=== PATIENT | female | born 1940 | race Caucasian/White ===

== ENCOUNTER 2020-10-30 14:35 | Emergency (ER) | payer MEDICARE, OTHER ==
[2020-10-30] MEDS ORDERED: ATROPINE 0.4 MG/ML VIAL IVP ONE (14:51)
[2020-10-30] MEDS ORDERED: GLUCAGON 5 MG in DEXTROSE 5% 45 ML IV STA (14:51)
[2020-10-30] MEDS ORDERED: SODIUM CHLORIDE 0.9% 1,000 ML IV STA ×2 (14:52→15:45)
--- NOTE | 2020-10-30 14:54 | ED Physician Documentation ---
History of Present Illness - Stated complaint Stated Complaint: "LOW PULSE" - Chief complaint Chief Complaint: Cardiac - History obtained from History obtained from: Patient - History of Present Illness Timing: Today Pain level max: 0 Pain level now: 0 - Additonal information Additional information: 79-year-old female who presents to the emergency department feeling lightheaded and dizzy today. Upon arrival to triage her heart rate is between 20 and 30. She does not know what medication she takes. She states that she is on medication for high blood pressure, atrial fibrillation, memory issues. She lives in [place] and is here visiting. Review of Systems Ten Systems: 10 systems reviewed and negative Constitutional: denies: Fever, Chills Nose: denies: Rhinorrhea / runny nose, Congestion Throat: denies: Sore throat Cardiac: denies: Chest pain / pressure Respiratory: denies: Cough GI: reports: Nausea. denies: Abdominal Pain, Vomiting, Diarrhea Skin: denies: Rash Musculoskeletal: denies: Neck pain, Back pain Neurologic: denies: Headache PD PAST MEDICAL HISTORY - Past Medical History Past Medical History: Yes Cardiovascular: Hypertension, Atrial fibrillation Neuro: Dementia - Present Medications Home Medications: Ambulatory Orders Medication Instructions Recorded Confirmed Albuterol Sulfate [Proair Hfa 1 - 2 puffs INH Q4H PRN 10/30/20 10/30/20 Inhaler] Donepezil HCl [Aricept] 10 mg PO DAILY 10/30/20 10/30/20 Estrogens, Conjugated Cream 30 gm VG ONCE 10/30/20 10/30/20 [Premarin Cream] Famotidine [Pepcid] 20 mg PO DAILY 10/30/20 10/30/20 Fluoxetine HCl [Prozac] 40 mg PO DAILY 10/30/20 10/30/20 Memantine HCl [Namenda] 10 mg PO BID 10/30/20 10/30/20 Metoprolol Succinate [Toprol Xl] 100 mg PO DAILY 10/30/20 10/30/20 Rivaroxaban [Xarelto] 20 mg PO DAILY 10/30/20 10/30/20 Spironolactone [Aldactone] 25 mg PO DAILY 10/30/20 10/30/20 Umeclidinium Brm/Vilanterol Tr 1 each IH DAILY 10/30/20 10/30/20 [Anoro Ellipta 62.5-25 Mcg INH] - Allergies Allergies/Adverse Reactions: Allergies Allergy/AdvReac Type Severity Reaction Status Date / Time latex Allergy Rash Verified 10/30/20 14:40 Penicillins Allergy Rash Verified 10/30/20 14:40 - Living Situation Living Situation: reports: With family Living Arrangement: reports: At home - Social History Does the pt have substance abuse?: No - Family History Family history: reports: Non contributory PD ED PE NORMAL - Vitals Vital signs reviewed: Yes - General General: Alert and oriented X 3, Well developed/nourished, Other (Pale appearing) - HEENT HEENT: Moist mucous membranes - Neck Neck: Supple, no meningeal sign - Cardiac Cardiac: Strong equal pulses, Other (bradycardia) - Respiratory Respiratory: No respiratory distress, Clear bilaterally - Abdomen Abdomen: Soft, Non tender, Non distended - Derm Derm: Warm and dry - Extremities Extremities: No edema - Neuro Neuro: Alert and oriented X 3 - Psych Psych: Normal mood, Normal affect Results - Vitals Vitals: Vital Signs - 24 hr 10/30/20 10/30/20 10/30/20 14:40 15:06 15:30 Temperature 36.3 C L Heart Rate 31 L 38 L 39 L Respiratory 14 16 14 Rate Blood Pressure 128/62 128/62 O2 Saturation 94 89 L 94 10/30/20 10/30/20 10/30/20 16:00 16:35 17:04 Temperature Heart Rate 58 L 58 L 48 L Respiratory 14 11 L 12 Rate Blood Pressure 137/81 H 130/81 H 146/71 H O2 Saturation 94 94 95 Oxygen O2 Source Room air - EKG (time done) 1443 Rate: Rate (enter#) (28) Rhythm: Other (junctional rhythm) Lane: Normal Intervals: Normal MA QRS: Normal Ischemia: Normal ST segments 1631 Rate: Rate (enter#) (57) Rhythm: NSR Lane: Normal Intervals: Prolonged MA QRS: Normal Ischemia: Normal ST segments - Labs Labs: Laboratory Tests 10/30/20 10/30/20 10/30/20 14:45 14:45 14:45 WBC 7.6 RBC 4.52 Hgb 11.7 L Hct 39.0 MCV 86.3 MCH 25.9 L MCHC 30.0 L RDW 16.3 H Plt Count 280 MPV 10.7 Neut # (Auto) 5.7 Lymph # (Auto) 1.0 L [place] # (Auto) 0.7 Eos # (Auto) 0.1 Baso # (Auto) 0.0 Absolute Nucleated RBC 0.00 Nucleated RBC % 0.0 PT 26.2 H INR 2.5 H APTT 40.7 H Sodium 132 L Potassium 4.7 Chloride 92 L Carbon Dioxide 29 Anion Gap 11.0 BUN 27 H Creatinine 2.3 H Estimated GFR (MDRD) 21 L Glucose 153 H POC Whole Bld Glucose Calcium 9.4 Total Bilirubin 0.7 AST 36 ALT 25 Alkaline Phosphatase 134 H Troponin I High Sens B-Natriuretic Peptide Total Protein 7.5 Albumin 3.9 Globulin 3.6 Albumin/Globulin Ratio 1.1 Lipase 54 H Last Dose Date Last Dose Time Digoxin 10/30/20 10/30/20 10/30/20 14:45 14:45 14:45 WBC RBC Hgb Hct MCV MCH MCHC RDW Plt Count MPV Neut # (Auto) Lymph # (Auto) [place] # (Auto) Eos # (Auto) Baso # (Auto) Absolute Nucleated RBC Nucleated RBC % PT INR APTT Sodium Potassium Chloride Carbon Dioxide Anion Gap BUN Creatinine Estimated GFR (MDRD) Glucose POC Whole Bld Glucose Calcium Total Bilirubin AST ALT Alkaline Phosphatase Troponin I High Sens 17.1 H* B-Natriuretic Peptide 1121 H Total Protein Albumin Globulin Albumin/Globulin Ratio Lipase Last Dose Date Not Reportable Last Dose Time Not Reportable Digoxin 1.2 10/30/20 14:58 WBC RBC Hgb Hct MCV MCH MCHC RDW Plt Count MPV Neut # (Auto) Lymph # (Auto) [place] # (Auto) Eos # (Auto) Baso # (Auto) Absolute Nucleated RBC Nucleated RBC % PT INR APTT Sodium Potassium Chloride Carbon Dioxide Anion Gap BUN Creatinine Estimated GFR (MDRD) Glucose POC Whole Bld Glucose 170 H Calcium Total Bilirubin AST ALT Alkaline Phosphatase Troponin I High Sens B-Natriuretic Peptide Total Protein Albumin Globulin Albumin/Globulin Ratio Lipase Last Dose Date Last Dose Time Digoxin PD MEDICAL DECISION MAKING - ED course Complexity details: reviewed results, re-evaluated patient, considered differential, d/w patient, d/w family ED course: 79-year-old female presents to the emergency department accompanied by her . They are visiting from [facility]. Upon arrival to the ER, her heart rate was in the 20s, she was gudino and ashen. She was given atropine and glucagon. Started on a low-dose epinephrine drip. External pacer pads were placed, but not turned on. Her heart rate gradually improved to the mid 50s, she then converted back into a sinus rhythm. She is on metoprolol at home, unclear if it is 25 or 100 mg. She has a medication list on her phone and one sent from her doctor, they are different medications on each list. Patient is also on digoxin for atrial fibrillation. Patient states that she uses oxygen at night only. Discussed with 1640 Dr. Ambrose, cardiology at [facility] who graciously accepts in transfer. Patient is currently sinus bradycardia. COBRA forms completed. This document was made in part using voice recognition software. While efforts are made to proofread this document, sound alike and grammatical errors may occur. Departure - Departure Disposition: 02 Transfer Acute Care Hosp Clinical Impression: Junctional bradycardia Condition: Stable
[2020-10-30] MEDS ORDERED: EPINEPHrine 4 MG in DEXTROSE 5% 246 ML IV STA (15:04)
[2020-10-30 15:09] LABS: BASOPHILS % (AUTO) 0.4 %; EOSINOPHILS # (AUTO) 0.1 10^3/uL (0.0-0.7); EOSINOPHILS % (AUTO) 1.1 %; HGB - HEMOGLOBIN 11.7 g/dL (12.0-16.0); LYMPHOCYTES % (AUTO) 13.6 %; MEAN CORPUSCULAR HEMOGLOBIN 25.9 pg (27.0-31.0); MEAN CORPUSCULAR VOLUME 86.3 fL (81.0-99.0); MEAN PLATELET VOLUME 10.7 fL (7.9-10.8); MONOCYTES # (AUTO) 0.7 10^3/uL (0.0-1.0); MONOCYTES % (AUTO) 9.4 %; NEUTROPHILS # (AUTO) 5.7 10^3/uL (1.5-6.6); PLT - PLATELET COUNT 280 10^3/uL (130-450); RED BLOOD COUNT 4.52 10^6/uL (4.20-5.40); RED CELL DISTRIBUTION WIDTH 16.3 % (12.0-15.0); WHITE BLOOD COUNT 7.6 x10^3/uL (4.8-10.8)
--- NOTE | 2020-10-30 15:16 | XRAY Report ---
PROCEDURE: Chest 1 View X-Ray INDICATIONS: Chest Pain TECHNIQUE: One view of the chest was acquired. COMPARISON: None FINDINGS: Surgical changes and devices: Left shoulder arthroplasty. Lungs and pleura: No pleural effusions or pneumothorax. Lungs are grossly clear. It is noted that pacer lead overlying the left hemithorax limits evaluation. Mediastinum: Mediastinal contours appear normal. Heart size is normal. Bones and chest wall: No suspicious bony lesions. Overlying soft tissues appear unremarkable. IMPRESSION: No acute pulmonary process. Reviewed by: Kay Anaya MD on 10/30/2020 3:15 PM PST Approved by: Kay Anaya MD on 10/30/2020 3:15 PM PST Station ID: [id number]
[2020-10-30 15:33] LABS: ALBUMIN 3.9 g/dL (3.2-5.5); ALBUMIN/GLOBULIN RATIO 1.1 (1.0-2.2); BILIRUBIN,TOTAL 0.7 mg/dL (0.2-1.0); CALCIUM 9.4 mg/dL (8.5-10.3); CREATININE 2.3 mg/dL (0.4-1.0); POTASSIUM 4.7 mmol/L (3.5-5.0); TOTAL PROTEIN 7.5 g/dL (6.7-8.2)
[2020-10-30 15:36] LABS: INR 2.5 (0.8-1.2); PT - PROTHROMBIN TIME 26.2 secs (9.9-12.6)
[2020-10-30 15:37] LABS: DIGOXIN 1.2 ng/mL
[2020-10-30 15:44] LABS: PARTIAL THROMBOPLASTIN TIME 40.7 secs (24.9-33.3)
[2020-10-30 17:55] LABS: B. PARAPERTUSSIS- RESP PCR PAN NOT DETECTED; B. PERTUSSIS- RESP PCR PANEL NOT DETECTED; C. PNEUMONIAE- RESP PCR PANEL NOT DETECTED; CORONAVIRUS 229E-RESP PCR NOT DETECTED; CORONAVIRUS HKU1-RESP PCR NOT DETECTED; CORONAVIRUS NL63-RESP PCR NOT DETECTED; CORONAVIRUS OC43-RESP PCR NOT DETECTED; HUMAN METAPNEUMOVIRUS NOT DETECTED; INFLUENZA A- RESP PCR PANEL NOT DETECTED; INFLUENZA B - RESP PCR PANEL NOT DETECTED; M. PNEUMONIAE- RESP PCR PANEL NOT DETECTED; PARAINFLUENZA VIRUS 1 NOT DETECTED; PARAINFLUENZA VIRUS 2 NOT DETECTED; PARAINFLUENZA VIRUS 3 NOT DETECTED; PARAINFLUENZA VIRUS 4 NOT DETECTED; RHINOVIRUS/ENTEROVIRUS NOT DETECTED; RSV- RESP PCR PANEL NOT DETECTED; SARS-CoV-2 -RESP PCR PANEL NOT DETECTED
[2020-10-30 19:13] VITALS: BP 151/64
== END 2020-10-30 18:57 | disposition short-term general hospital (02) ==
LOC: ED 14:35
DX: R00.1 Bradycardia, unspecified (principal); R42 Dizziness and giddiness; I10 Essential (primary) hypertension; I48.91 Unspecified atrial fibrillation; Z79.01 Long term (current) use of anticoagulants; F03.90 Unspecified dementia, unspecified severity, without behavioral disturbance, psychotic disturbance, mood disturbance, and anxiety; Z20.822 Contact with and (suspected) exposure to COVID-19
CPT/HCPCS: 0202U; 36415; 80053; 80162; 83690; 83880; 84484; 85025; 85610; 85730; 93005; 96365; 96368; 96375; 99284

== ENCOUNTER 2020-10-30 18:57 | Outpatient (CLI) | payer MEDICARE, OTHER | END 2020-10-30 18:58 | disposition short-term general hospital (02) | LOC: EMS 18:57 | PROVIDERS: ATTEND Emergency Medicine | DX: R00.1 Bradycardia, unspecified (principal) | CPT/HCPCS: A0425; A0428 ==